=== PATIENT | female | born 1975 | race African-American/Black ===

== ENCOUNTER 2019-03-08 08:22 | Emergency (ER) | payer MEDICAID ==
[~2019-03-08] VITALS: Ht 165.1 cm; Wt 75.0 kg
[2019-03-08] MEDS ORDERED: ACETAMINOPHEN 325MG TABLET PO ONE (08:45)
[2019-03-08] MEDS ORDERED: IBUPROFEN 600MG TABLET PO ONE (09:00)
[2019-03-08 09:47] VITALS: BP 121/51
== END 2019-03-08 09:50 | disposition home or self-care (01) ==
LOC: ER 08:22
DX: M54.2 Cervicalgia (principal); M54.89 Other dorsalgia; S20.222A Contusion of left back wall of thorax, initial encounter; V49.40XA Driver injured in collision with unspecified motor vehicles in traffic accident, initial encounter; Y93.89 Activity, other specified; Y92.410 Unspecified street and highway as the place of occurrence of the external cause
CPT/HCPCS: 81025; 99284